=== PATIENT | male | born 1935 | race Hispanic/Latino ===

== ENCOUNTER 2025-03-04 09:47 | Observation (INO) | payer MEDICARE ==
[~2025-03-04] VITALS: Ht 165.1 cm; Wt 54.6 kg
[~2025-03-04 09:47] MED LIST: AMLO-258 PO; LEVO25TA9 PO; LISI40TA15 PO; QUET25TA PO
--- NOTE | 2025-03-04 10:44 | HP ---
[facility] HISTORY AND PHYSICAL Date of Service: Mar 04, 2025 Time of Service: 10:37 HISTORY OF PRESENT ILLNESS: This is an 89-year-old male with past medical history of obstructive jaundice, hypertension, gout, dementia, hypothyroidism, anemia, CKD who presented to the hospital for evaluation of his biliary drain. Patient has a history of obstructive jaundice and had previously external biliary drain placement by Dr. Centeno. He had also undergone percutaneous placement of internal covered biliary stent by Dr. Centeno on 02/11/2025 for obstructive jaundice. He was thereafter discharged with outpatient follow up. Patient currently has been eating well at home. He is tolerating p.o. diet. Denies any fever, chills, chest pain, shortness of breath, abdominal pain, nausea, vomiting. Denied any changes in his bowel movement. He was sent to the hospital by his primary care provider for evaluation of his external biliary drain. Patient currently does not have a external bag present. Per patient has jaundice has improved and she feels stent is working perfectly. He was sent by his PCP for evaluation of external biliary drain and possible removal with cholangiogram. POA patient's temperature on presentation was 97.3, heart rate was 70, blood pressure was 130/62 REVIEW OF SYSTEMS CONSTITUTIONAL: Denies fevers, chills, or night sweats. No unintentional weight loss reported. NEUROLOGICAL: Denies headache, amaurosis fugax, motor weakness, sensory defi cit, vertigo/spinning sensation, gait abnormalities, or tremors. ENT: No hearing loss, otalgia, otorrhea, rhinitis, rhinorrhea, hoarseness, or sore throat. CARDIOVASCULAR: Denies any exertional angina, dyspnea on exertion, orthopnea, paroxysmal nocturnal dyspnea, palpitations, life-threatening arrhythmias, claudication. PULMONARY: Denies any shortness of breath, cough, phlegm/sputum, hemoptysis, pleuritic chest pain. SLEEP: Denies morning headaches, daytime somnolence or napping. Denies difficulty falling asleep, staying asleep, waking from sleep. Denies knowledge of snoring. GASTROINTESTINAL: Denies any type of dysphagia to either liquids or solids. Denies nausea, vomiting, pyrosis, early satiety, abdominal pain, diarrhea, constipation, or changes in stool consistency or caliber. Denies coffee-ground emesis, hematemesis, hematochezia, or melanotic stools. GENITOURINARY: Denies frequency, urgency, nocturia, hematuria or incontinence (Storage/Irritative symptoms.) Low urinary stream, straining to void, urinary intermittency or hesitancy, splitting of the voiding stream, terminal dribbling. ENDOCRINOLOGIC: Denies polyuria, polydipsia, polyphagia or heat/cold intolerances. HEMATOLOGIC: Denies thrombophilia/previous clots, or coagulopathy/bleeding disorders. ONCOLOGIC: Denies personal history of malignancy. DERMATOLOGIC: Denies rashes or pruritus. PSYCHIATRIC: Denies any suicidal or homicidal ideation. Denies hallucinations. PAST MEDICAL HISTORY: [ obstructive jaundice, hypertension, gout, dementia, hypothyroidism, adult failure to thrive, iron-deficiency anemia, hypoalbuminemia , CKD ascending cholangitis with biliary drain ] PAST SURGICAL HISTORY: [ History of internal biliary stent placement, history of external biliary catheter with drainage bag placement in 2024 ] PAST SOCIAL HISTORY: [Lives with family, son is primary caregiver and PCP No tobacco, alcohol, or illicit drug use FAMILY HISTORY: Denies any pertinent family history Coded Allergies: doxycycline (Unverified Allergy, Unknown, 01/22/25) PHYSICAL EXAM GENERAL APPEARANCE: The patient is awake, alert, and oriented, in no acute cardiopulmonary distress. NEUROLOGICAL: Cranial nerves II-XII grossly intact. Motor is 5/5 in bilateral upper and lower extremities proximal to distal. No sensory deficits. HEENT: Face is symmetric. Pupils are equal and reactive. Extraocular movements are intact. NECK: Supple. No JVD. No thyromegaly. No submental, submandibular, pre- /postauricular, occipital or supraclavicular lymphadenopathy. CHEST: Normal chest expansion. No Telemetry. LUNGS: Absence of any rales, rhonchi or any wheezing. CARDIOVASCULAR: Regular. S1 and S2 normal. No appreciable rubs, murmurs or gallops. ABDOMEN: Soft, nontender, and nondistended. Patient has a external biliary drain present. Abdomen is soft to palpation. There is no tenderness to palpation. : Deferred. No Le. EXTREMITIES: Non-edematous and not cyanotic. No clubbing. Good capillary refill. SKIN: No skin breakdown. Vital Sign (Last 24 Hours) 03/04/25 09:50 Temp 97.3 Pulse 70 Resp 16 B/P (MAP) 130/62 Pulse Ox 99 O2 Delivery Room Air O2 Flow Rate 0 LABS: No blood work DIAGNOSTICS / RADIOLOGY: No imaging available ASSESSMENT: Obstructive jaundice status post external biliary catheter and internal biliary stent placement by Interventional Radiology Dr. Centeno on February 11, 2025 Hypotension Hypothyroidism History of anemia Gout PLAN: - patient to be admitted to Med surge unit -in reference to obstructive jaundice. Patient will remain NPO for now. Patient was scheduled for IR procedure today. IR is aware about biliary drain evaluation with possible cholangiogram. We will defer to Interventional Radiology regarding a drain removal. Patient currently does not have any systemic signs. No fevers present. We will obtain a CBC, CMP, coagulation panel -obtain home medications which will be reconciled once we will - patient to be started NS with gentle hydration -further orders per hospitalization Advanced Care Planning Which of the following were discussed: Hospice care: Yes __ No _x_ Therapeutic options: Yes __ No __ Advance directives: Yes __ No __ Other discussions: Discussed with who?: patient and (Patient, family or surrogates) Voluntary nature of this service was explained to the patient? Yes x__ No __ Amount of time spent: 25 minutes ANUP Bass MD, MD Mar 04, 2025 10:44
[2025-03-04 10:52] LABS: IMMATURE GRANULOCYTE ABSOLUTE 0.04 K/uL (0-1); NUCLEATED RED BLOOD CELLS 0.0 % (0.0-0.19); PLATELET COUNT (AUTO) 366 K/uL (130-400); RED BLOOD CELL COUNT(AUTO) 3.64 MIL/uL (4.50-6.20); RED CELL DISTRIBUTION WIDTH 17.2 % (11.0-15.5); WHITE BLOOD COUNT (AUTO) 8.6 K/uL (4.8-10.8)
[2025-03-04] MEDS: 0.9%NACL 1000ML 1,000 ML IV SCH (11:00)
[2025-03-04 11:02] LABS: INR 1.01 (0.85-1.15)
[2025-03-04 11:03] LABS: CREATININE 1.0 mg/dL (0.5-1.3); GLOMERULAR FILTR. RATE CALC 73.0 mL/min (>90); GLUCOSE,RANDOM 112.0 mg/dL (70-105); SODIUM SERUM 138.0 mmol/L (136-145); UREA NITROGEN, BLOOD 21.0 mg/dL (7-18)
[2025-03-04 11:07] LABS: ASPARTATE AMINOTRANSFERASE 30.0 U/L (10-37); TOTAL PROTEIN, SERUM 7.4 g/dL (6.0-8.3)
--- NOTE | 2025-03-04 12:54 | DS ---
Discharge Summary Hospital Course Summary: DATE OF SERVICE: 03/04/2022 This is an 89-year-old male with past medical history of obstructive jaundice, hypertension, gout, dementia, hypothyroidism, anemia, CKD who presented to the hospital for evaluation of his biliary drain. Patient has a history of obstructive jaundice and had previously external biliary drain placement by Dr. Centeno. He had also undergone percutaneous placement of internal covered biliary stent by Dr. Centeno on 02/11/2025 for obstructive jaundice. He was thereafter discharged with outpatient follow up. Patient currently has been eating well at home. He is tolerating p.o. diet. Denies any fever, chills, chest pain, shortness of breath, abdominal pain, nausea, vomiting. Denied any changes in his bowel movement. He was sent to the hospital by his primary care provider for evaluation of his external biliary drain. Patient currently does not have a external bag present. Per patient has jaundice has improved and she feels stent is working perfectly. He was sent by his PCP for evaluation of external biliary drain and possible removal with cholangiogram. Patient was evaluated by Interventional Radiology and underwent diagnostic cholangiogram doctor soon. Patient's external biliary drain was removed. Patient tolerated procedure well. He currently has a internal and external biliary stent present. The patient was cleared by IR to be discharged home. Patient to follow closely follow up with his primary care provider. I spoke to patient's son who is his PCP. Recommended repeating BMP for tomorrow. Patient has mild hyperkalemia likely from lisinopril use. He has recommended low potassium diet and close follow up with a repeat BMP for tomorrow. Patient and understood plan of care. They were requesting to be discharged home. Pulp Bleacher(s): Interventional Radiology, Dr. Centeno Procedure(s): Cholangiogram with external biliary drain removal. Assessment/Plan: ASSESSMENT: Obstructive jaundice status post external biliary catheter and internal biliary stent placement by Interventional Radiology Dr. Centeno on February 11, 2025 status post external biliary drain removal Hypotension Hypothyroidism History of anemia Gout Mild hyperkalemia likely from lisinopril use PLAN: - patient to be admitted to Med surge unit - patient underwent cholangiogram with removal of external biliary drain. He has a internal biliary stent present per Interventional Radiology. Patient tolerated the procedure well and was cleared by radiology to be discharged. I spoke to patient's son for a close follow up with his primary care provider with a repeat BMP for tomorrow. Recommended low-potassium diet. Advanced Care Planning Which of the following were discussed: Hospice care: Yes __ No _x_ Therapeutic options: Yes __ No __ Advance directives: Yes __ No __ Other discussions: Discussed with who?: patient and (Patient, family or surrogates) Voluntary nature of this service was explained to the patient? Yes x__ No __ Amount of time spent: 25 minutes Anup Mary MD Home Medications: Active Scripts Quetiapine Fumarate (Seroquel) 25 Mg Tablet, 25 MG PO HS PRN for agitation for 30 Days, #30 TAB 1 Refill Prov:BOOKER BRANCH MD 02/13/25 Levothyroxine Sodium (Synthroid 25 Mcg Tab) 25 Mcg Tablet, 25 MCG PO SYN for 30 Days, #30 TAB 1 Refill Prov:BOOKER BRANCH MD 02/04/25 Reported Medications Amlodipine Besylate (Amlodipine Besylate) 10 Mg Tablet, 10 MG PO DAILY for 30 Days, #30 TAB 0 Refills 01/24/25 Lisinopril (Lisinopril) 40 Mg Tablet, 1 TAB PO DAILY for 30 Days, #30 TAB 0 Refills 01/24/25 Time spent arranging discharge: 31-60 minutes ANUP MARY MD Mar 04, 2025 12:54
--- NOTE | 2025-03-04 14:02 | NUR ---
PATIENT WAS DC'D BY DR MARY I DC'D PATIENTS IV WITH CATH STILL INTACT AND APPLIED 2X2 GAUZE WITH COBAN I EXPLAINED TO PATIENT TO FOLLOW UP WITH PCP, PROVIDED INFO BASED ON DIAGNOSIS, AND ANSWERED ANY FOLLOW UP QUESTIONS I ALSO EXPLAINED TO PATIENT AND AT BEDSIDE FOR PATIENT TO CONTINUE HOME MEDICATIONS I TOOK PATIENT OUT OF ED VIA WHEELCHAIR ACCOMPANIED BY , NO COMPLICATIONS
[2025-03-04 14:04] VITALS: BP 177/66; PULSE 58; RESP 15; TEMP 98; O2SAT 99
[2025-03-04] MEDS ORDERED: FAMOTIDINE 20MG VIAL IV SCH (21:00)
--- NOTE | 2025-03-04 23:32 | OP ---
DATE OF PROCEDURE: 03/04/2025 HISTORY: This is a gentleman who underwent placement of a biliary stent and has an internal external biliary catheter for removal. The catheter has been capped for many days. DESCRIPTION OF PROCEDURE: Under sterile technique, catheter cholangiogram was performed. The study demonstrates the stent and the biliary catheter to be in satisfactory position. The gallbladder and the cystic duct are visualized. There are multiple small gallstones seen in the gallbladder. The biliary radicles are not dilated. The catheter was removed, and the left internal biliary stent is in satisfactory position. TID: [id number] RECEIPT: [id number]
== END 2025-03-04 13:50 | disposition home or self-care (01) ==
LOC: EDH 09:47 → EDHIP 09:48
PROVIDERS: ADMIT Internal Medicine; ATTEND Internal Medicine
DX: K83.09 Other cholangitis (principal); I12.9 Hypertensive chronic kidney disease with stage 1 through stage 4 chronic kidney disease, or unspecified chronic kidney disease; N18.9 Chronic kidney disease, unspecified; M10.9 Gout, unspecified; K80.21 Calculus of gallbladder without cholecystitis with obstruction; E87.5 Hyperkalemia; E03.9 Hypothyroidism, unspecified; I95.9 Hypotension, unspecified; D53.9 Nutritional anemia, unspecified; Z79.899 Other long term (current) drug therapy; Z98.890 Other specified postprocedural states
CPT/HCPCS: 47537; 80053; 85025; 85610; 85730; 36415; Q9965; G0378 ×4